=== PATIENT | male | born 1990 | race Caucasian/White ===

== ENCOUNTER 2016-01-31 15:15 | Outpatient (RCR) | payer BC ==
[~2016-01-31 15:15] MED LIST: CATAPRES 0.1MG0.1 MG PO; DAZIDOX10 MG
== END 2016-04-22 | disposition home or self-care (01) ==
LOC: WSC
DX: Z47.89 Encounter for other orthopedic aftercare (principal); M25.811 Other specified joint disorders, right shoulder

== ENCOUNTER 2016-05-12 08:00 | Outpatient (RCR) | payer BC | END 2016-06-04 10:31 | disposition home or self-care (01) | LOC: MKS.ESL.PT 08:00 | DX: M22.2X1 Patellofemoral disorders, right knee (principal) ==

== ENCOUNTER 2016-06-26 08:00 | Outpatient (RCR) | payer BC | END 2016-09-02 | disposition home or self-care (01) | LOC: MKS.ESL.PT | DX: Z47.89 Encounter for other orthopedic aftercare (principal); M25.861 Other specified joint disorders, right knee ==

== ENCOUNTER → 2019-12-06 | Outpatient (CLI) | payer BC | LOC: ZCOL.LAB 16:16 | DX: Z20.828 Contact with and (suspected) exposure to other viral communicable diseases (principal) ==

== ENCOUNTER 2020-05-08 22:31 | Emergency (ER) | payer BC ==
[~2020-05-08] VITALS: Ht 175.3 cm; Wt 90.9 kg
[2020-05-08 22:41] VITALS: TEMP 97.3
[2020-05-08 23:49] LABS: COLLECTION METHOD CLEAN CATCH
[2020-05-08 23:59] LABS: EOS % 0.1 % (0-4.0); GRAN % 66.9 % (42.2-75.2); HEMATOCRIT 49.6 % (42.0-52.0); HEMOGLOBIN 16.3 g/dl (13.5-18.0); LYMPH % 24.8 % (20.0-51.0); MEAN CELL VOLUME 97 fl (80.0-100.0); MEAN CORPUSCULAR HEMOGLOBIN 32 pg (27.0-31.0); MEAN CORPUSCULAR HGB CONC 33 g/dl (33.0-37.0); MEAN PLATELET VOLUME 9.4 fl (7.4-10.4); MONO % 6.9 % (1.7-9.3); PLATELET COUNT 267 K/mm3 (130-400); RED BLOOD COUNT 5.13 M/mm3 (4.20-5.60); REDCELL DISTRIBUTION WIDTH-CV 12.5 % (11.5-14.5)
[2020-05-09] LABS: BASO # 0.1 (0.0-0.2); GRAN # 6.1 (1.4-6.5); LYMPH # 2.3 (1.2-3.4); MONO # 0.6 (0.1-0.6)
[2020-05-09 00:03] LABS: ACETAMINOPHEN < 10 ug/mL (10-30); ALANINE AMINOTRANSFERASE 34 U/L (4-49); ALBUMIN 5.1 gm/dL (3.5-5.0); ALCOHOL(ethanol),MEDICAL < 10 mg/dL; ALKALINE PHOSPHATASE 60 U/L (50-136); ANION GAP 9 mmol/L (7-16); AST,SGOT 30 U/L (15-37); BILIRUBIN,TOTAL 0.6 mg/dL (0.0-1.0); BLOOD UREA NITROGEN 15 mg/dL (9-20); CALCIUM 9.5 mg/dL (8.4-10.2); CARBON DIOXIDE 29 mmol/L (22-30); CHLORIDE 102 mmol/L (98-107); CREATININE, serum 1.21 (0.66-1.25); GLUCOSE 76 mg/dL (74-106); POTASSIUM 3.8 mmol/L (3.4-5.0); SALICYLATE < 1.0 mg/dL; SODIUM 139 mmol/L (137-145); TOTAL PROTEIN 8.3 gm/dL (6.4-8.2)
[2020-05-09 00:04] LABS: TRICYCLIC ANTIDEPRESS URINE POSITIVE
[2020-05-09 00:28] LABS: PH 5 (5-8); SQUAMOUS EPITHELIAL None Seen /hpf; URINE APPEARANCE Clear; URINE BACTERIA None Seen /hpf; URINE BILIRUBIN Negative (NEGATIVE); URINE BLOOD 1+ (NEGATIVE); URINE COLOR Yellow; URINE GLUCOSE Negative (NEGATIVE); URINE KETONE Negative (NEGATIVE); URINE LEUKOCYTE ESTERASE Negative (NEGATIVE); URINE NITRATE Negative (NEGATIVE); URINE PROTEIN(semi-quant) Negative (NEGATIVE); URINE UROBILINOGEN Negative (NEGATIVE)
[2020-05-09 02:20] VITALS: BP 170/102; PULSE 76
== END 2020-05-09 02:20 | disposition home or self-care (01) ==
LOC: COL.ER 22:31
PROVIDERS: Physician Assistant
DX: R45.851 Suicidal ideations (principal); F41.0 Panic disorder [episodic paroxysmal anxiety]